=== PATIENT | female | born 1975 | race Caucasian/White ===

== ENCOUNTER 2017-06-27 22:24 | Emergency (ER) | payer SELFPAY ==
[2017-06-27 22:41] VITALS: BP 95/67; PULSE 92; RESP 18; TEMP 98.1; O2SAT 97
[2017-06-27] MEDS ORDERED: KETOROLAC 30 MG/1 ML SDV IM ONE (23:02)
[2017-06-27] MEDS ORDERED: LIDOCAINE/PRILOCAINE 1 EACH CRTUBE TP ONE (23:03)
--- NOTE | 2017-06-27 23:07 | EDPHY ---
H & P Time Seen by Provider: 06/27/17 22:37 HPI/ROS: CHIEF COMPLAINT: The bilateral hand pain History by patient HISTORY OF PRESENT ILLNESS: 42-year-old woman with a history of complex regional pain syndrome in her hands, left greater than right as well as in her chest and bilateral legs presents complaining of which she says is a flare of her CRPs. She says that she has been swelling up and also getting urticaria. She recently moved here from [place] and ran out of all of her medication that she usually takes about 1 month ago. She has not yet established primary care. She says she also ran out of her inhaler medications that she takes for her asthma. She says she has tried aspirin and ibuprofen with minimal relief. She has also tried Candace and Claritin. She describes the pain in her hands is burning and severe. She says she normally takes 2 kinds of morphine and Topamax and Klonopin for this. REVIEW OF SYSTEMS: As in HPI, and all other systems reviewed and are negative Smoking Status: Heavy smoker Physical Exam: General Appearance: Alert, obese, nontoxic-appearing. Head: normocephalic, atraumatic Eyes: Pupils equal and round, reactive to light, no pallor or injection. Mouth: Mucous membranes moist. Respiratory: Normal, effort, lungs are clear to auscultation. No wheezes, rales or rhonchi. Cardiovascular: Regular rate and rhythm. S1, S2, no murmurs, gallops or rubs appreciated Gastrointestinal: Abdomen is soft and nontender, no masses, bowel sounds normal. Back: No CVA tenderness, no bony tenderness Neurological: Awake, alert and oriented x 3, no pronator drift, normal gait, no pronator drift Skin: Warm and dry, no rashes. Musculoskeletal: No deformities or tenderness. Extremities: full range of motion, bilateral left greater than right hand swelling without erythema or warmth, positive glossy skin changes on the left hand radial pulse 2 +equal bilaterally, radial, median and ulnar nerve intact, DP2+ bilat Psychiatric: Patient has normal affect, there is no agitation. Constitutional: Initial Vital Signs Temperature (C) 36.7 C 06/27/17 22:30 Heart Rate 92 06/27/17 22:30 Respiratory Rate 18 06/27/17 22:30 Blood Pressure 95/67 L 06/27/17 22:30 O2 Sat (%) 97 06/27/17 22:30 O2 Delivery Mode Room Air Allergies/Adverse Reactions: pregabalin [From Lyrica] Allergy (Intermediate, Verified 06/27/17 22:41) Swelling/neck,face,throat Sulfa (Sulfonamide Antibiotics) Allergy (Intermediate, Verified 06/27/17 22:41) Swelling/neck,face,throat Home Medications: Medication Instructions Recorded Albuterol [Proventil Inhaler HFA 1 - 2 puffs IH Q4H #1 mdi 06/27/17 (*)] Aspirin 06/27/17 FLUTICASONE/SALMETEROL [ADVAIR HFA 1 puffs IH DAILY #1 mdi 06/27/17 230-21 MCG INHALER] Ibuprofen 06/27/17 Lidocaine [Lidocaine 4% cream] 30 gm TP TID PRN #1 cream.gm. 06/27/17 Topiramate [Topamax] 50 mg PO BID #28 tablet 06/27/17 MDM/Departure - [facility] ED Course/Re-evaluation: 42-year-old woman presents asking for refills of her medications in complaining of ongoing bilateral hand pain which is typical of her chronic regional pain syndrome. Patient was given IM ketorolac and topical lidocaine. We discussed how we could not refill opiate pain medications in the emergency department. Patient is referred for primary care. She is given a refill of her other medications. - Depart Disposition: Home, Routine, Self-Care Clinical Impression: Bilateral hand pain Condition: Good Instructions: Medicine Refill (ED) Additional Instructions: You were seen by Dr. Neda Lopez today. Please establish primary care. You also benefit from establishing care with a paint and table edger. You may try topical lidocaine cream for pain. We have refilled your inhalers and your Topamax. I recommend taking cetirizine ( Zyrtec) for allergy like symptoms. We will not refill opiate pain medications in the emergency department. The risks of opiates generally outweigh the benefits in chronic pain and you should discuss with your primary care doctor the best way to manage here ongoing symptoms. Return for any worsening or new concerns. Prescriptions: Albuterol [Proventil Inhaler HFA (*)] 1 - 2 puffs IH Q4H #1 mdi FLUTICASONE/SALMETEROL [ADVAIR HFA 230-21 MCG INHALER] 1 puffs IH DAILY #1 mdi Lidocaine [Lidocaine 4% cream] 30 gm TP TID PRN #1 cream.gm. PRN Reason: pain Topiramate [Topamax] 50 mg PO BID #28 tablet Referrals: NONE *PRIMARY CARE P,. [Primary Care Provider] - As per Instructions
== END 2017-06-27 23:24 | disposition home or self-care (01) ==
LOC: EDBD → CED 22:24
DX: M79.641 Pain in right hand (principal); M79.642 Pain in left hand; F17.200 Nicotine dependence, unspecified, uncomplicated; Z79.82 Long term (current) use of aspirin
CPT/HCPCS: J1885

== ENCOUNTER 2017-06-28 20:24 | Emergency (ER) | payer SELFPAY ==
[2017-06-28 20:33] VITALS: BP 134/67; RESP 16; TEMP 98.4
[2017-06-28] MEDS ORDERED: predniSONE 20 MG TAB PO ONE (21:02)
[2017-06-28] MEDS ORDERED: diphenhydrAMINE 25 MG CAP PO ONE (21:02)
[2017-06-28] MEDS ORDERED: FAMOTIDINE 20 MG TAB PO ONE (21:02)
[2017-06-28] MEDS ORDERED: ACETAMINOPHEN 500 MG TAB PO ONE (21:03)
--- NOTE | 2017-06-28 21:14 | EDPHY ---
H & P Time Seen by Provider: 06/28/17 20:39 HPI/ROS: This patient returns after being seen here yesterday with chronic pain. She explains that she now has chief complaint of itching and swelling that seem to 1st started after taking aspirin 3 days ago but has worsened over the past 24 hours with intense itching of her hands swelling the right hand more than left. "Red blotches on legs " associated with itching. She also has itching and swelling of her right more than left earlobe. She has a feeling of tightness in her throat is if there is also swelling in her throat. She tried Zyrtec without much relief and then had 50 mg of Benadryl dose at 2:30 a.m. in the afternoon today with mild relief of the itching but persistent swelling and redness. ROS: No fevers or chills. No other constitutional symptoms. HEENT: As per HPI. No dysphonia. Pulmonary: No shortness of breath or wheezing. Cardiovascular: She reports some lightheadedness earlier today but none currently. No chest pain. GI: No nausea or vomiting. Neuro: No numbness or tingling. No focal weakness. 7 point ROS is otherwise negative Past Medical/Surgical History: Complex regional pain syndrome that she reports originated from a combination of musculoskeletal injuries from sports and multiple surgeries citing abdominal surgeries primarily. She has been off opiates for about a month since moving here from [place]. She was restarted on her Topamax, given a dose of Toradol IM last night and started on lidocaine patches. Smoking Status: Heavy smoker Physical Exam: Vital signs normal General Appearance: Alert, no distress. Eyes: Pupils equal and round no pallor or injection. ENT, Mouth: Mucous membranes moist. She has mild swelling of the right more than left earlobe with redness but no warmth to touch. Respiratory: There are no retractions, lungs are clear to auscultation. Cardiovascular: Regular rate and rhythm. Gastrointestinal: Abdomen is soft and nontender, no masses, bowel sounds normal. Neurological: GCS of 15 without focal deficits appreciated Skin: Warm and dry, patient has erythematous papules to the right thigh extending the right lower leg ana easily with pressure consistent with urticaria the same urticaria is present left leg to lesser extent. Musculoskeletal: Neck is supple nontender. Extremities are symmetrical, full range of motion. Psychiatric: Anxious and mildly agitated from her itching. DIFFERENTIAL DIAGNOSIS: After history and physical exam differential diagnosis was considered for allergic reaction, CRPS, drug-seeking Constitutional: Initial Vital Signs Temperature (C) 36.9 C 06/28/17 20:25 Heart Rate 85 06/28/17 20:25 Respiratory Rate 16 06/28/17 20:25 Blood Pressure 134/67 H 06/28/17 20:25 O2 Sat (%) 95 06/28/17 20:25 O2 Delivery Mode Room Air Allergies/Adverse Reactions: pregabalin [From Lyrica] Allergy (Intermediate, Verified 06/28/17 20:33) Swelling/neck,face,throat Sulfa (Sulfonamide Antibiotics) Allergy (Intermediate, Verified 06/28/17 20:33) Swelling/neck,face,throat Home Medications: Medication Instructions Recorded Albuterol [Proventil Inhaler HFA 1 - 2 puffs IH Q4H #1 mdi 06/27/17 (*)] Aspirin 06/27/17 FLUTICASONE/SALMETEROL [ADVAIR HFA 1 puffs IH DAILY #1 mdi 06/27/17 230-21 MCG INHALER] Ibuprofen 06/27/17 Lidocaine [Lidocaine 4% cream] 30 gm TP TID PRN #1 cream.gm. 06/27/17 Topiramate [Topamax] 50 mg PO BID #28 tablet 06/27/17 Famotidine [Pepcid] 40 mg PO 10 #10 tablet 06/28/17 predniSONE 60 mg PO DAILY #17 tab 06/28/17 MDM/Departure - [facility]DM ED Course/Re-evaluation: Prednisone 60 mg p.o. Benadryl 50 mg p.o. Pepcid 40 mg p.o. Tylenol 1000 mg p.o. Discussion: Findings are consistent with allergic reaction without evidence of anaphylaxis at this time. I reiterated that we would not refill her opiate pain medications here - Depart Disposition: Home, Routine, Self-Care Clinical Impression: Urticaria Allergic reaction Qualifiers: Encounter type: initial encounter Qualified Code(s): T78.40XA - Allergy, unspecified, initial encounter Chronic pain Qualifiers: Chronic pain type: chronic pain syndrome Qualified Code(s): G89.4 - Chronic pain syndrome Condition: Good Instructions: General Allergic Reaction (ED) Additional Instructions: Diagnosis: 1. Allergic reaction likely to aspirin. 2. Chronic pain Plan: Continue medications Tylenol in addition for pain Start prednisone daily in the morning after breakfast as prescribed for the next week. Pepcid 40 mg a day and Benadryl 50 mg per 6 hours in addition for the itching. Call primary care physician on Thursday to establish primary care physician and also a chronic pain physician. Return emergency department for any significant worsening despite treatment plan. Referrals: NONE *PRIMARY CARE P,. [Primary Care Provider] - As per Instructions Kemal Pastor MD [Medical Doctor] - As per Instructions
[2017-06-28 22:14] VITALS: PULSE 89; O2SAT 93
== END 2017-06-28 21:49 | disposition home or self-care (01) ==
LOC: CED 20:24
DX: L50.0 Allergic urticaria (principal); G89.4 Chronic pain syndrome; F17.200 Nicotine dependence, unspecified, uncomplicated; Z79.82 Long term (current) use of aspirin